=== PATIENT | male | born 1995 | race Caucasian/White ===

== ENCOUNTER 2021-01-16 20:07 | Emergency (ER) | payer OTHER, SELFPAY ==
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
[2021-01-16 20:42] VITALS: BP 118/79; PULSE 61; RESP 17; TEMP 36.5; O2SAT 99; BMI 27.1
[2021-01-16] MEDS: Lidocaine 4 % Patch ADH..PATCH 1 PATCH TRANSDERMA (22:31)
[2021-01-16] MEDS: Ibuprofen 800 MG TABLET PO (23:23)
[2021-01-16] MEDS: Cyclobenzaprine HCl 10 MG TABLET PO (23:23)
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
[2021-01-16 23:39] VITALS: BP 120/76; PULSE 64; RESP 18; TEMP 36.6; O2SAT 99
== END 2021-01-16 23:49 | disposition home or self-care (01) ==
PROVIDERS: Emergency Provider Student in an Organized Health Care Education/Training Program
DX: Z04.1 Encounter for examination and observation following transport accident (principal); M54.6 Pain in thoracic spine
CPT/HCPCS: 71101; 72070; 99284